=== PATIENT | female | born 1970 | race Caucasian/White ===

== ENCOUNTER 2018-08-25 19:17 | Emergency (ER) | payer BC ==
[2018-08-25 19:26] VITALS: BP 123/86
[2018-08-25] MEDS ORDERED: Tetracaine 0.5% OPTH.SOL 4 ML* 1 DROP BTL LEFT EYE ONE (19:30)
[2018-08-25] MEDS ORDERED: NS 0.9% 1000 ML** 1,000 ML ONE (19:40)
[2018-08-25] MEDS ORDERED: Ibuprofen TAB* 600 MG PO ONE (20:18)
[2018-08-25] MEDS ORDERED: Fluorescein Sodium TOPICAL* 1 MG TEST STRIP OPHTHALMIC ONE (20:18)
[2018-08-25] MEDS ORDERED: Erythromycin OPTH OINT* APPLIC OINT LEFT EYE ONE (20:50)
--- NOTE | 2018-08-25 20:56 | UC ---
Eye Complaint HPI - HPI Summary HPI Summary: 48-year-old female presents with complaints of left eye pain after accidentally getting splashed in the eye with Palmolive Oxy concentrated detergent just prior to arrival. States she immediately flushed the eye with tap water for approximately 10 minutes before coming to the urgent care center. She complains of burning pain with photophobia, tearing, and mild blurred vision to the left eye. She does not wear contacts. - History of Current Complaint Chief Complaint: UCEye Stated Complaint: EYE INJURY Time Seen by Provider: 08/25/18 19:43 Hx Obtained From: Patient Hx Last Menstrual Period: 2 weeks ago Pain Intensity: 6 - Allergies/Home Medications Allergies/Adverse Reactions: Allergies Allergy/AdvReac Type Severity Reaction Status Date / Time No Known Allergies Allergy Verified 08/25/18 19:20 Home Medications: Home Medications Cetirizine* [ZyrTEC 10 MG TAB*] 10 mg PO DAILY 08/25/18 [History Confirmed 08/25] Fluticasone NASAL SPRAY 50MCG* [Flonase NASAL SPRAY 50MCG*] 2 spray BOTH NARES DAILY 08/25/18 [History Confirmed 08/25/18] PMH/Surg Hx/FS Hx/Imm Hx Endocrine History: Hypothyroidism - Surgical History Surgical History: Yes Surgery Procedure, Year, and Place: ACL REPAIR 1996. breast biopsy - Family History Known Family History: Positive: Non-Contributory - Social History Occupation: Employed Full-time Lives: With Family Alcohol Use: Occasionally Substance Use Type: None Smoking Status (MU): Never Smoked Tobacco Review of Systems All Other Systems Reviewed And Are Negative: Yes Constitutional: Positive: Negative Skin: Positive: Negative Eyes: Positive: Blurred Vision, Eye Redness, Photophobia ENT: Positive: Negative Respiratory: Positive: Negative Cardiovascular: Positive: Negative Gastrointestinal: Positive: Negative Genitourinary: Positive: Negative Musculoskeletal: Positive: Negative Neurological: Positive: Negative Is Patient Immunocompromised?: No Physical Exam - Summary Physical Exam Summary: GENERAL APPEARANCE: Well developed, well nourished, alert and cooperative, and appears to be in no acute distress. EYES: Left eye with conjuctival erythema. Tearing. PERRL, EOM intact. Tetracaine and fluorosceine were instilled in the left eye and eye was examined under magnification using a wood's lamp. There was a small circular area of stain uptake approximately 0.2 cm in diameter to the middle of the eye within the visual field. No FB or penetrating injury noted. Visual acuity reviewed. CARDIAC: Normal S1 and S2. No S3, S4 or murmurs. Rhythm is regular. There is no peripheral edema, cyanosis or pallor. Extremities are warm and well perfused. Capillary refill is less than 2 seconds. Peripheral pulses intact. LUNGS: Clear to auscultation without rales, rhonchi, wheezing or diminished breath sounds. ABDOMEN: Positive bowel sounds. Soft, nondistended, nontender. No guarding or rebound. No masses or hepatosplenomegally. MUSKULOSKELETAL: ROM intact to all extremities. No joint erythema or tenderness. Normal muscular development. Normal gait. SKIN: Skin normal color, texture and turgor with no lesions or eruptions. Triage Information Reviewed: Yes Vital Signs: Initial Vital Signs Temp 99.5 F 08/25/18 19:21 Pulse 71 08/25/18 19:21 Resp 18 08/25/18 19:21 BP 123/86 08/25/18 19:21 Pulse Ox 100 08/25/18 19:21 Vital Signs Reviewed: Yes Eye Complaint Course/Dx - Course Course Of Treatment: 48-year-old female presents with complaints of left eye pain after accidentally getting splashed in the eye with Palmolive Oxy concentrated detergent just prior to arrival. States she immediately flushed the eye with tap water for approximately 10 minutes before coming to the urgent care center. She complains of burning pain with photophobia, tearing, and mild blurred vision to the left eye. She does not wear contacts. Afebrile. Vital signs stable. The patient was having pretty significant discomfort upon arrival with significant tearing and erythema of the eye. She was having a lot of difficulty opening her eye due to the pain photophobia. Her eye pH was tested and measured to be 7.0. Tetracaine drops were placed in her eye and her eye was irrigated with a liter of normal saline using a Hernan lens. She was given ibuprofen 600 mg for pain. After the irrigation a more thorough exam of the eye was performed. She had conjuctival erythema of the left eye with tearing, PERRL, and intact EOM. Tetracaine and fluorosceine were instilled in the left eye and the eye was examined under magnification using a wood's lamp which showed a small circular area of stain uptake approximately 0.2 cm in diameter to the middle of the eye within the visual field. No FB or penetrating injury noted. Her visual acuity was reviewed. Erythromycin ophthalmic ointment was instilled into the left eye and dispensed to be used 4 times a day for 7 days. Recommending continued use of ibuprofen 600 mg every 6-8 hours as needed for pain. She is to follow up with ophthalmology in 1-2 days for re-evaluation. Anticipatory guidance and warning symptoms requiring immediate evaluation in the emergency room were reviewed with the patient. It was recommended that if she needed ER follow-up that she should go to [facility] evaluation. Patient verbalizes understanding and agrees with plan of care. - Differential Dx/Diagnosis Differential Diagnosis/HQI/PQRI: Corneal Abrasion, Foreign Body, Other - chemical eye burn Provider Diagnosis: Chemical exposure of eye, Left corneal abrasion Discharge - Sign-Out/Discharge Documenting (check all that apply): Patient Departure All imaging exams completed and their final reports reviewed: No Studies - Discharge Plan Condition: Stable Disposition: HOME Patient Education Materials: Chemical Eye Perez (ED), Corneal Abrasion (ED) Referrals: Monica Jewell MD [Primary Care Provider] - Balwinder Lester MD [Medical Doctor] - 1 Day (Call first thing tomorrow morning for appointment.) Additional Instructions: Your eye was thoroughly irrigated and you had a neutral pH test in the clinic. Your exam shows a corneal abrasion in the center of your left eye. Use erythromycin ointment to help prevent infection. Apply a thin ribbon of ointment to the inner lower lid and blink several times to spread the ointment around the eye. This may cause some temporary blurred vision. Take ibuprofen 600 mg every 6-8 hours as needed for pain. Follow up with ophthalmology in 1-2 days for further evaluation and treatment. Call first thing tomorrow morning for an appointment. Seek immediate medical attention in the emergency room if you have severe eye pain that is not managed with pain medication, have visual disturbances, loss of vision, swelling of the eye, or any worsening of symptoms. I would recommend that you be evaluated at [facility] in [place] where they can obtain an urgent consultation with ophthalmology. - Billing Disposition and Condition Condition: STABLE Disposition: Home
== END 2018-08-25 21:27 | disposition home or self-care (01) ==
LOC: UCEAST 19:17
DX: S05.02XA Injury of conjunctiva and corneal abrasion without foreign body, left eye, initial encounter (principal); T65.891A Toxic effect of other specified substances, accidental (unintentional), initial encounter; Y92.9 Unspecified place or not applicable
CPT/HCPCS: 83986; 99202; A9270-GY; G0463

== ENCOUNTER 2018-10-11 08:22 | Emergency (ER) | payer BC ==
[2018-10-11 08:29] VITALS: BP 93/72
--- NOTE | 2018-10-11 08:46 | UC ---
Eye Complaint HPI - HPI Summary HPI Summary: patient is a 48-year-old female who presents to the urgent care with chief complaint of having irritation in the right eye. This morning when she woke up she noticed a lot of crusting which was yellowish in color and erythema in the conjunctiva. She denies any pain, denies any palpation, denies any visual changes. She has no other complaints. - History of Current Complaint Chief Complaint: UCEye Stated Complaint: EYE ISSUE Time Seen by Provider: 10/11/18 08:34 Hx Obtained From: Patient Hx Last Menstrual Period: 10/06/18 Onset/Duration: Gradual Onset Severity Initially: Mild Pain Intensity: 2 - Allergies/Home Medications Allergies/Adverse Reactions: Allergies Allergy/AdvReac Type Severity Reaction Status Date / Time No Known Allergies Allergy Verified 10/11/18 08:29 PMH/Surg Hx/FS Hx/Imm Hx Previously Healthy: Yes Endocrine History: Hypothyroidism - Surgical History Surgical History: Yes Surgery Procedure, Year, and Place: ACL REPAIR 1996. breast biopsy - Family History Known Family History: Positive: None, Hypertension - Social History Alcohol Use: Occasionally Substance Use Type: None Smoking Status (MU): Never Smoked Tobacco Review of Systems All Other Systems Reviewed And Are Negative: Yes Constitutional: Positive: Negative Skin: Positive: Negative Eyes: Positive: Drainage ENT: Positive: Negative Respiratory: Positive: Negative Cardiovascular: Positive: Negative Gastrointestinal: Positive: Negative Genitourinary: Positive: Negative Motor: Positive: Negative Neurovascular: Positive: Negative Musculoskeletal: Positive: Negative Neurological: Positive: Negative Psychological: Positive: Negative Is Patient Immunocompromised?: No Physical Exam - Summary Physical Exam Summary: VITAL SIGNS: Reviewed. GENERAL: Patient is a well developed and nourished female who is lying comfortably in the stretcher. Patient is not in any acute respiratory distress. HEAD AND FACE: No signs of trauma. No ecchymosis, hematomas or skull depressions. No sinus tenderness. EYES: PERRLA, EOMI x 2, positive injected conjunctiva, no nystagmus. EARS: Hearing grossly intact. Ear canals and tympanic membranes are within normal limits. MOUTH: Oropharynx within normal limits. NECK: Supple, trachea is midline, no adenopathy, no JVD, no carotid bruit, no c- spine tenderness, neck with full ROM. CHEST: Symmetric, no tenderness at palpation LUNGS: Clear to auscultation bilaterally. No wheezing or crackles. CVS: Regular rate and rhythm, S1 and S2 present, no murmurs or gallops appreciated. ABDOMEN: Soft, non-tender. No signs of distention. No rebound no guarding, and no masses palpated. Bowel sounds are normal. EXTREMITIES: FROM in all major joints, no edema, no cyanosis or clubbing. NEURO: Alert and oriented x 3. No acute neurological deficits. Speech is normal and follows commands. SKIN: Dry and warm Vital Signs: Initial Vital Signs Temp 97.7 F 10/11/18 08:26 Pulse 70 10/11/18 08:26 Resp 16 10/11/18 08:26 BP 93/72 10/11/18 08:26 Pulse Ox 100 10/11/18 08:26 Eye Complaint Course/Dx - Course Course Of Treatment: It seems that the patient has a right eye conjunctivitis. Therefore, I prescribed ciprofloxacin ophthalmic for this patient. Patient will follow-up with PCP. Patient is hemodynamically stable alert and oriented 3. - Differential Dx/Diagnosis Provider Diagnosis: Acute conjunctivitis Discharge - Sign-Out/Discharge Documenting (check all that apply): Patient Departure All imaging exams completed and their final reports reviewed: No Studies - Discharge Plan Condition: Stable Disposition: HOME Prescriptions: Ciprofloxacin 0.3% OPTH.PHIL* [Cipro 0.3% Opth*] 2 drop BOTH EYES Q4H #1 btl Patient Education Materials: Conjunctivitis (ED) Referrals: Monica Jewell MD [Primary Care Provider] - Additional Instructions: Take medications as instructed Increase your fluid intake F/U with PCP in the next 2-3 days Return to the if symptoms worsen - Billing Disposition and Condition Condition: STABLE Disposition: Home
== END 2018-10-11 08:49 | disposition home or self-care (01) ==
LOC: UCEAST 08:22
DX: H10.9 Unspecified conjunctivitis (principal); E03.9 Hypothyroidism, unspecified
CPT/HCPCS: 99212; G0463

== ENCOUNTER → 2019-06-01 06:09 | Day surgery (SDC) | payer BC ==
[~2019-06-01 06:09] MED LIST: Acetaminophen TAB* 325 MG ONE; Acetaminophen TAB* 325 MG PO PRN; Buffered Lidocaine 1% SYRIN* 1 ML/SYRINGE INTRADERM ONE; Bupivacaine 0.25% SDV* 30 ML ONE; Dexamethasone IV* 4 MG/ML 1 ML (4 MG) ONE; DiMENhydriNATE IV* 50 MG/ML VIAL IV PUSH PRN; DiMENhydriNATE IV* 50 MG/ML VIAL ONE; Famotidine IV* 10 MG/ML 2 ML (20 mg) IV ONE; Famotidine IV* 10 MG/ML 2 ML (20 mg) ONE; HYDROmorphone INJ1* 1 MG/ML SYRINGE IV PRN; Ketorolac INJ* 30 MG/ML 1 ML VIAL ONE; Lactated Ringers 1000 ML Bag* 1,000 ML IV SCH; Lidocaine 2% PF * 5 ML VIAL ONE; Midazolam* 1 MG/ML 5 ML VIAL (5 MG) ONE; Naloxone* 0.4 MG/ML 1 ML VIAL IV PRN; Ondansetron INJ* 2 MG/ML VIAL ONE; Propofol* 10 MG/ML 20 ML BTL ONE; ceFAZolin 2 GM PREMIX in ORs 2 GM/50 ML BAG ONE; fentaNYL* 50 MCG/ML 2 ML VIAL (100 MCG VIAL) ONE
[2019-06-01 10:47] VITALS: BP 114/72
--- NOTE | 2019-06-02 13:00 | OP ---
DATE OF OPERATION: 06/01/19 - [facility] DATE OF : 70 SURGEON: Jn Henao MD OPHTHALMIC TECHNICIAN: SIXTO Coates. ANESTHESIOLOGIST: Dr. Jerome. ANESTHESIA: General. PRE-OP DIAGNOSES: 1. Right carpal tunnel syndrome. 2. Right cubital tunnel syndrome. POST-OP DIAGNOSES: 1. Right carpal tunnel syndrome. 2. Right cubital tunnel syndrome. PROCEDURE PERFORMED: 1. Right endoscopic carpal tunnel release. 2. Right ulnar nerve decompression at the elbow with anterior transmuscular transposition. INDICATIONS: Ms. Cabello is 49 years old. She has pretty significant carpal and cubital tunnel syndromes. We talked about treatment options. I told her typically I do a decompression of the ulnar nerve and then if there is instability, I will go ahead and transpose the nerve. She understands and wished to proceed with surgery. ESTIMATED BLOOD LOSS: 10 mL. COMPLICATIONS: None. FINDINGS: See above and elbow. DESCRIPTION OF PROCEDURE: Ms. Cabello was seen in the preoperative holding area. The correct side, site, and procedure were identified. We came back to the operating room. The arm was prepped and draped in the usual fashion and time-out was performed. I made a 1 cm transverse incision just ulnar to the palmaris longus tendon, dissection was carried down through the subcutaneous tissue and the distal antebrachial fascia was spread transversely with the tenotomy scissors. I placed a two-prong skin hook underneath the lip of the fascia and then I dilated open the carpal tunnel. The MicroAire endoscopic carpal tunnel system was introduced. I began the release distally and took that all the way proximally. Once I had confirmed that the transverse carpal ligament was completely released distally, I used the tenotomy scissors to release the distal antebrachial fascia proximally. At this point, everything was looking good. The decompression was looking very nice. The wound was irrigated out and the skin was closed with 4-0 Prolene suture and Steri-Strips. I then abducted and externally rotated the arm. A curvilinear incision was made over the cubital tunnel, dissection was carried down and full-thickness flaps were raised off of the fascia overlying the cubital tunnel. The medial antebrachial cutaneous nerve was preserved. I went ahead and performed a decompression starting just proximal to Celaya's ligament and decompressing all the way past the arcade of [place]. Celaya's ligament was then released. The superficial FCU fascia was released. The 2 heads of the FCU were split and the subfascial layer was released. The motor branches were preserved. There was instability of the ulnar nerve noted, it was subluxating up and over the medial epicondyle. I went ahead and raised full-thickness flaps off of the flexor pronator fascia, I raised step cut fascial flaps off the fascia. The muscular septi were excised. I released and excised the medial intermuscular septum. I released the leading edge of the FCU fascia and a little bit of the FCU muscle there. The vessel loop was placed around the ulnar nerve and a full neurolysis was performed. I went ahead and transposed the nerve up into the correct position. I sewed the two ends of my fascial flap in the end to keep providing nice loose fascial sling over the nerve to hold it in the transposed position. Hemostasis was obtained with the Bovie and bipolar. At this point, everything was looking very good. I irrigated out the wound. Subcutaneous tissue was reapproximated with 3-0 Vicryl suture. Skin was closed with 3-0 Monocryl and Steri-Strips, 0.25% Marcaine was infiltrated around both wounds. The wound was dressed with Xeroform, 4x4s and ABD at the elbow. Sterile Webril and then a long-arm splint with lateral buttress was applied. She was taken to the recovery room in stable condition. [id number]/CPS #: [id number] GLEN
== END | disposition home or self-care (01) ==
LOC: OR 06:09
PROVIDERS: ATTEND Orthopaedic Surgery Hand Surgery
DX: G56.03 Carpal tunnel syndrome, bilateral upper limbs (principal); E03.9 Hypothyroidism, unspecified; G56.23 Lesion of ulnar nerve, bilateral upper limbs
CPT/HCPCS: 81025; A9270-GY; J0690; J1100; J1240; J1885; J2250; J2405; J2704; J3010; J3490